=== PATIENT | male | born 1995 | race Hispanic/Latino ===

== ENCOUNTER 2018-07-17 11:23 | Emergency (ER) | payer MEDICAID, OTHER ==
[2018-07-17] MEDS ORDERED: LIDOCAINE HCL 1% 20 ML VIAL ONE (12:10)
== END 2018-07-17 12:42 | disposition home or self-care (01) ==
LOC: EDH 11:23
DX: L02.412 Cutaneous abscess of left axilla (principal)
CPT/HCPCS: 10060